=== PATIENT | female | born 1985 | race African-American/Black ===

== ENCOUNTER 2018-01-17 13:54 | Emergency (ER) | payer SELFPAY ==
[2018-01-17 14:02] VITALS: BP 121/72; BMI 31.6
[2018-01-17] MEDS ORDERED: ROCEPHIN VIAL 250 MG IM ONE (15:07)
[2018-01-17] MEDS ORDERED: ZITHROMAX TAB 250 MG PO ONE ×2 (15:07→15:15)
--- NOTE | 2018-01-17 15:09 | DR.GENAD ---
HPI - PCP Primary Care Physician: [email or web address] - HPI Comment HPI Comment: HISTORY BELOW. - Complaint/Symptoms Chief Complaint Doctors Comments: EXPOSE TO GC. DIAGNOSE AND TREATED FOR GC ON 01/14/2018. PATIENT HAVE BLADDER PRESSURE AND URINARY FREQUENCY. NO FEVER. Chief Complaint:: Pt c/o 2 day history of "pressure on my bladder" associated with urinary frequency, and burning. Pt also c/o small amount of creamy white vaginal discharge. - Nurses notes reviewed Nurses Notes Review: Yes - Source History Provided: Patient - Mode of Arrival Mode of Arrival: Ambulatory - Timing Onset of Chief Complaint: 01/15/18 Came on: Suddenly - Duration Duration: Constant Duration: Days - Severity Severity: Moderate PMH - PMH Past Medical History: No Past Surgical History: Yes Past Surgical History Comment: D&C. Tubal ligation - Family History History of Family Medical Conditions: Yes Family Medical History: Diabetes Mellitus, Hypertension - Social History Does patient currently use any type of tobacco product: Yes Have you used tobacco products in the last 12 months: No Type of Tobacco Use: None Alcohol Use: Occasionally Do you use any recreational Drugs:: No Lives With: Family Lives Where: Home - infectious screening In the last 2 months have you had wt loss of >10#?: NO Have you had fever, night sweats or hemotysis?: No Have you traveled outside the country in the last 6 months?: No Isolation: Standard ROS - Review of Systems Constitutional: No Symptoms Reported Eyes: No Symptoms Reported ENTM: No Symptoms Reported Respiratoy: No Symptoms Reported Cardiovascular: No Symptoms Reported Gastrointestinal/Abdominal: No Symptoms Reported Genitourinary: Frequency Neurological: No Symptoms Reported Musculoskeletal: No Symptoms Reported Integumentary: No Symptoms Reported Hematologic/Lymphatic: No Symptoms Reported Endocrine: No Symptoms Reported All Other Systems: Reviewed and Negative PE - Vital Signs Vitals: Temperature 98.7 F Pulse Rate 89 Respiratory Rate 20 Blood Pressure 121/72 O2 Sat by Pulse Oximetry 98 - General Limitations: No Limitations General Appearance: Alert - Head Head Exam: Normal Inspection - Eyes Eye exam: Normal Appearance - ENT ENT Exam: Normal External Ear Exam External Ear Exam: Normal External Inspection TM/Canal Exam: Bilateral Normal Nose Exam: Normal Nose Exam Mouth Exam: Normal Inspection Throat Exam: Normal Inspection - Neck Neck Exam: Trachea Midline - Chest Chest Inspection: Symmetric Chest Wall Rise - Respiratory Respiratory Exam: Normal Lung Sounds Bilat Respiratory Exam: Bilateral Clear to Auscultation - Cardiovascular Cardiovascular Exam: Regular Rate, Normal Rhythm, Normal Heart Sounds - Abdominal Exam Abdominal Exam: Normal Bowel Sounds, Soft. negative: Tenderness - Extremities Extremities Exam: Normal Inspection - Back Back Exam: Normal Inspection - Neurologic Neurological Exam: Alert, Oriented X3 - Psychiatric Psychiatric Exam: Normal Affect, Normal Mood - Skin Skin Exam: Normal Color MDM - Differential Diagnosis Differential Diagnosis: STD EXPOSURE, URINARY FREQUENCY, UTI Course - Treatment Treatment: SEE ORDERS. IM ROCEPHIN AND PO ZITHROMAX IN ED. - Education/Counseling Education/Counseling: Patient, Education Educated On: Treatment, Diagnosis, Needs for Follow Up ROR - Labs Reviewed Laboratory Results Reviewed?: Yes Laboratory: Specimen Type Clean catch urine 01/17/18 15:14 Urine Color Pale yellow (YELLOW) 01/17/18 15:14 Urine Appearance Clear (CLEAR) 01/17/18 15:14 Urine pH 7.0 (5.0 - 8.0) 01/17/18 15:14 Ur Specific [place] 1.005 (1.000-1.030) 01/17/18 15:14 Urine Protein Negative (NEGATIVE) 01/17/18 15:14 Urine Glucose (UA) Negative (NEGATIVE) 01/17/18 15:14 Urine Ketones Negative (NEGATIVE) 01/17/18 15:14 Urine Occult Blood Negative (NEGATIVE) 01/17/18 15:14 Urine Nitrite Negative (NEGATIVE) 01/17/18 15:14 Urine Bilirubin Negative (NEGATIVE) 01/17/18 15:14 Urine Urobilinogen Normal (NORMAL) 01/17/18 15:14 Ur Leukocyte Esterase 2+ (NEGATIVE) 01/17/18 15:14 Urine RBC None seen /HPF (NONE SEEN) 01/17/18 15:14 Urine WBC 20-30 /HPF (NONE SEEN) 01/17/18 15:14 Ur Squamous Epith Cells Few /HPF (NEGATIVE) 01/17/18 15:14 Urine Bacteria Trace /HPF (NEGATIVE) 01/17/18 15:14 Ur Culture Indicated? Yes/culture set up 01/17/18 15:14 Ur C. trach DNA (PCR) Detected (NOT DETECT) A 01/17/18 15:14 U N.gonorrhoeae DNA PCR Detected (NOT DETECT) A 01/17/18 15:14 - Diagnosis Discharge Problem: STD (female) UTI (urinary tract infection) Qualifiers: Urinary tract infection type: acute cystitis Hematuria presence: with hematuria Qualified Code(s): N30.01 - Acute cystitis with hematuria - Discharge Plan Disposition: [facility] Condition: Stable Prescriptions: Sulfamethoxazole-Trimethoprim [BACTRIM DS TAB 800/160 MG *] 1 tab PO BID #20 tab - Follow ups/Referrals Follow ups/Referrals: N[facility],None [Primary Care Provider] - 3 days - Instructions Instructions: Sexually Transmitted Disease, [id number], Urinary Tract Infection, Adult, [id number] Additional Instructions: RETURN TO ED IF WORSE.
[2018-01-17] MEDS ORDERED: ROCEPHIN VIAL 250 MG ONE (15:16)
[2018-01-17] MEDS ORDERED: XYLOCAINE 1 % (PLAIN) ONE (15:17)
[2018-01-17 15:22] LABS: BILIRUBIN,URINE NEGATIVE (NEGATIVE); BLOOD/HEMOGLOBIN,URINE NEGATIVE (NEGATIVE); GLUCOSE, URINE NEGATIVE (NEGATIVE); KETONES,URINE NEGATIVE (NEGATIVE); LEUKOCYTE ESTERASE ,URINE 2+ (NEGATIVE); NITRITES,URINE NEGATIVE (NEGATIVE); PROTEIN,URINE NEGATIVE (NEGATIVE); UROBILINOGEN,URINE NORMAL (NORMAL)
[2018-01-17 15:25] LABS: APPEARANCE,URINE CLEAR (CLEAR); COLOR,URINE PALE YELLOW (YELLOW)
[2018-01-17 15:32] LABS: RBC,URINE NONE SEEN /HPF (NONE SEEN)
[2018-01-17 15:33] LABS: BACTERIA,URINE TRACE /HPF (NEGATIVE); SQUAMOUS EPITHELIAL CELL,UR FEW /HPF (NEGATIVE)
[2018-01-17 18:20] LABS: CHLAMYDIA TRACH URINE DETECTED (NOT DETECT)
== END 2018-01-17 15:42 | disposition short-term general hospital (02) ==
LOC: ER 14:22
DX: A64 Unspecified sexually transmitted disease (principal); N30.01 Acute cystitis with hematuria
CPT/HCPCS: 81001; 87086; 87491; 87591; 96372; 99282; Q0144; J0696; J2001